=== PATIENT | male | born 1985 | race Caucasian/White ===

== ENCOUNTER 2020-09-06 01:42 | Emergency (ER) | payer MEDICAID ==
[~2020-09-06] VITALS: Ht 180.3 cm; Wt 84.5 kg
[2020-09-06 01:51] VITALS: BP 138/99
--- NOTE | 2020-09-06 01:55 | NUR ---
PT TAKEN TO BED 11
--- NOTE | 2020-09-06 02:05 | NUR ---
Dr. Ayers examining patient.
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
[2020-09-06] MEDS ORDERED: LIDOCAINE/EPI 1% 1:100000 20 ML VIAL INJ ONE (02:10)
--- NOTE | 2020-09-06 02:13 | NUR ---
LAC TRAY SET UP AT BEDSIDE ALONG WITH EPI
--- NOTE | 2020-09-06 02:35 | NUR ---
PT RETURNED FROM CT VIA W/C.
--- NOTE | 2020-09-06 03:06 | NUR ---
ENDO AT BEDSIDE SUTURING LACERATION
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
--- NOTE | 2020-09-06 03:43 | NUR ---
Patient discharged with v/s stable. Written and verbal after care instructions given and explained. Patient verbalized understanding. Ambulatory with steady gait. All questions addressed prior to discharge. Advised to follow up with PMD.
== END 2020-09-06 03:43 | disposition home or self-care (01) ==
LOC: MED 01:42
DX: S05.31XA Ocular laceration without prolapse or loss of intraocular tissue, right eye, initial encounter (principal); Y04.2XXA Assault by strike against or bumped into by another person, initial encounter; Y93.89 Activity, other specified; Y92.89 Other specified places as the place of occurrence of the external cause; Y99.8 Other external cause status
CPT/HCPCS: 12013; 70450; 70486; 99285; J2001